=== PATIENT | female | born 1995 | race Caucasian/White ===

== ENCOUNTER 2019-10-11 19:56 | Emergency (ER) | payer OTHER ==
[~2019-10-11] VITALS: Ht 152.4 cm; Wt 112.0 kg
[2019-10-11 20:10] VITALS: BP_SYST 145
[2019-10-11] MEDS ORDERED: OXYMETAZOLINE HCL 0.05% NASAL SPRAY NS ONE (21:00)
[2019-10-11] MEDS ORDERED: HYDROcodone/ACETAMIN 5-325 MG TAB (NORCO/ VICODIN) PO ONE (21:00)
[2019-10-11 22:00] VITALS: BP_SYST 134
== END 2019-10-11 22:00 | disposition home or self-care (01) ==
LOC: SED 19:56
DX: S00.33XA Contusion of nose, initial encounter (principal); Z88.2 Allergy status to sulfonamides; W22.8XXA Striking against or struck by other objects, initial encounter; Y93.89 Activity, other specified; Y92.89 Other specified places as the place of occurrence of the external cause; Y99.8 Other external cause status
CPT/HCPCS: 70160-TC; 99283